=== PATIENT | female | born 1990 | race Caucasian/White ===

== ENCOUNTER 2017-04-28 11:52 | Emergency (ER) | payer BC, OTHER ==
[~2017-04-28] VITALS: Ht 165.1 cm; Wt 54.4 kg
[2017-04-28 11:52] VITALS: BP_SYST 118
[~2017-04-28 11:52] MED LIST: METO25TA3 PO
[2017-04-28] MEDS ORDERED: NACL 0.9% 1,000 ML IV ONE (12:13)
[2017-04-28] MEDS ORDERED: DIPHENHYDRAMINE INJ 50 MG/ML VIAL IVP ONE (12:15)
[2017-04-28] MEDS ORDERED: METOCLOPRAMIDE HCL 10 MG/2 ML VIAL IVP ONE (12:15)
[2017-04-28 13:12] LABS: BASOPHILS % (AUTO) 0.8 % (0.0-2.0); EOSINOPHILS # (AUTO) 0.2 K/uL (0.0-0.4); EOSINOPHILS % (AUTO) 4.1 % (0.0-4.0); HEMATOCRIT 37.4 % (36-48); HEMOGLOBIN 12.7 g/dL (12.0-16.0); LYMPHOCYTES # (AUTO) 1.3 K/uL (1.0-5.5); LYMPHOCYTES % (AUTO) 22.1 % (20.5-51.5); MEAN CORPUSCULAR HEMOGLOBIN 30 pg (27-31); MEAN CORPUSCULAR HGB CONC 34 % (32-36); MEAN CORPUSCULAR VOLUME 88 fL (79.0-98.0); MONOCYTES # (AUTO) 0.4 K/uL (0.0-1.0); MONOCYTES % (AUTO) 6.4 % (1.7-9.3); NEUTROPHILS # (AUTO) 4.2 K/uL (1.8-7.7); NEUTROPHILS % (AUTO) 66.6 % (40.0-70.0); PLATELET COUNT (AUTO) 268 K/uL (130-430); RED BLOOD CELL COUNT(AUTO) 4.26 MIL/uL (4.2-6.2); RED CELL DISTRIBUTION WIDTH 11.8 % (9.0-15.0); WHITE BLOOD COUNT (AUTO) 6.1 K/uL (4.8-10.8)
[2017-04-28 13:20] LABS: CALCIUM 8.5 mg/dL (8.4-11.0); CREATININE 0.62 mg/dL (0.55-1.30); POTASSIUM 3.6 mmol/L (3.5-5.1)
[2017-04-28 13:25] LABS: ALBUMIN 3.9 g/dL (3.4-4.8); TOTAL BILIRUBIN 0.5 mg/dL (0.0-1.0)
[2017-04-28 13:34] LABS: BILIRUBIN,URINE NEGATIVE (NEGATIVE); BLOOD, URINE NEGATIVE (NEGATIVE); CLARITY/URINE HAZY (CLEAR); COLOR,URINE YELLOW (YELLOW); GLUCOSE,URINE NEGATIVE (NEGATIVE); KETONES,URINE NEGATIVE (NEGATIVE); LEUKOCYTE ESTERASE ,URINE NEGATIVE (NEGATIVE); NITRITE, URINE NEGATIVE (NEGATIVE); PH,URINE 6.5 (5.0-8.0); PROTEIN URINE NEGATIVE (NEGATIVE); UROBILINOGEN,URINE 0.2 (0.2-1.0)
[2017-04-28] MEDS ORDERED: DEXAMETHASONE SOD PHOSPHATE 10 MG/ML VIAL IVP ONE (14:00)
[2017-04-28] MEDS ORDERED: PROCHLORPERAZINE EDISYLATE 10 MG/2 ML VIAL IVP ONE (14:00)
[2017-04-28] MEDS ORDERED: KETOROLAC TROMETHAMINE 30 MG VIAL IVP ONE (14:00)
[2017-04-28 15:35] VITALS: BP_SYST 104
== END 2017-04-28 15:35 | disposition home or self-care (01) ==
LOC: SED 11:52
DX: O26.891 Other specified pregnancy related conditions, first trimester (principal); G43.909 Migraine, unspecified, not intractable, without status migrainosus; Z90.89 Acquired absence of other organs; Z3A.10 10 weeks gestation of pregnancy
CPT/HCPCS: 36415; 80053; 81003; 85025; 96361; 96374; 96375; 99284; J0780; J1100; J1200; J1885; J2765; J7030

== ENCOUNTER 2018-07-19 06:12 | Day surgery (SDC) | payer BC ==
[~2018-07-19] VITALS: Ht 154.9 cm; Wt 52.2 kg
[2018-07-19] MEDS ORDERED: CEFAZOLIN SOD 1 GM/ ISO 50 ML PREMIX IV ONE (07:00)
[2018-07-19] MEDS ORDERED: CEFAZOLIN 1 GM IVPB PREMIX 50 ML IV ONE (07:21)
[2018-07-19] MEDS ORDERED: BUPIVACAINE /PF 0.5% 30 ML VIAL INJ ONE (07:40)
[2018-07-19] MEDS ORDERED: NS IRRIG SOLN 1000 ML IR ONE (07:40)
[2018-07-19] MEDS ORDERED: LR 1,000 ML IV.SOLN IV ONE (07:40)
[2018-07-19] MEDS ORDERED: PROPOFOL 200MG/ 20ML VIAL (DIPRIVAN) IV ONE (07:40)
[2018-07-19] MEDS ORDERED: SEVOFLURANE 15 MIN GAS INH ONE (07:40)
[2018-07-19] MEDS ORDERED: MIDAZOLAM HCL 5 MG/5 ML VIAL IVP ONE (07:40)
[2018-07-19] MEDS ORDERED: ROCURONIUM BROMIDE 10 MG/ML (ZEMURON) IV ONE (07:40)
[2018-07-19] MEDS ORDERED: fentaNYL CITRATE/PF 100 MCG/2 ML AMP IVP PRN ×2 (08:15)
[2018-07-19] MEDS ORDERED: KETOROLAC TROMETHAMINE 30 MG VIAL IVP PRN (08:15)
[2018-07-19] MEDS ORDERED: ONDANSETRON HCL 4 MG/2 ML VIAL IVP PRN ×2 (08:15→09:00)
[2018-07-19] MEDS ORDERED: OXYCODONE/ACETAMINOPHEN 5-325 TABLET PO PRN ×2 (09:00)
[2018-07-19] MEDS ORDERED: HYDROcodone/ACETAMIN 5-325 MG TAB (NORCO/ VICODIN) PO PRN (09:00)
[2018-07-19] MEDS ORDERED: SIMETHICONE 80 MG TAB.CHEW PO SCH (09:00)
[2018-07-19] MEDS ORDERED: fentaNYL CITRATE/PF 100 MCG/2 ML AMP ONE (09:40)
[2018-07-19] MEDS ORDERED: OXYCODONE/ACETAMINOPHEN 5-325 TABLET ONE (11:01)
[2018-07-19 11:38] VITALS: BP_SYST 112
== END 2018-07-19 12:00 | disposition home or self-care (01) ==
LOC: SMU 06:12 → SDS 06:12
PROVIDERS: ATTEND Specialist
DX: Z30.2 Encounter for sterilization (principal); Z98.890 Other specified postprocedural states; Z88.2 Allergy status to sulfonamides; Z79.899 Other long term (current) drug therapy
CPT/HCPCS: 58661; 88302; C1727; C1782; J0690; J2250; J2704; J3010; J3490; J7120